=== PATIENT | female | born 1955 | race American Indian/Alaskan Native ===

== ENCOUNTER 2016-12-19 19:11 | Emergency (ER) | payer BC, OTHER ==
[2016-12-19 19:23] VITALS: BMI 38.2
[2016-12-19 19:25] VITALS: TEMP 98.1; O2SAT 100
--- NOTE | 2016-12-19 19:38 | ED PDOC ---
Arrival/HPI - General Chief Complaint: Lower Extremity Problem/Injury Time Seen by Provider: 12/19/16 19:22 - History of Present Illness Narrative History of Present Illness (Text): 12/19/16 19:34 61 yo female, hx of chf, previous cva walks with cane, presents with shoulder pain, urinary frequency, and leg swelling. pt reports symptoms over week. no cp. pt poor historian, no family bedside. no trauma, no fevers, cough, n/v, abdominal pain. 12/20/16 02:18 Past Medical History - Provider Review Nursing Documentation Reviewed: Yes - Tetanus Immunization Tetanus Immunization: Unknown - Cardiac Hx Cardiac Disorders: Yes Hx Hypertension: Yes Other/Comment: ablation - Pulmonary Hx Respiratory Disorders: Yes (RESP FAILURE,TRACHEOSTOMY) Hx Asthma: Yes - Neurological HX Cerebrovascular Accident: Yes (R isabella) - HEENT Hx HEENT Disorder: Yes - Renal Hx Renal Disorder: No - Endocrine/Metabolic Hx Endocrine Disorders: No - Hematological/Oncological Hx Blood Transfusions: No Hx Blood Transfusion Reaction: No - Integumentary Hx Dermatological Disorder: Yes (REDNESS AROUND G TUBE) - Musculoskeletal/Rheumatological Hx Rheumatoid Arthritis: Yes - Gastrointestinal Hx Gastrointestinal Disorders: Yes Other/Comment: G tbue - Genitourinary/Gynecological Hx Genitourinary Disorders: Yes Hx Incontinence: Yes - Psychiatric Hx Psychophysiologic Disorder: Yes Hx Anxiety: Yes Hx Substance Use: No - Past Surgical History Past Surgical History: Unable to Obtain - Surgical History Other/Comment: gtube, ablation - Anesthesia Hx Anesthesia: Yes Hx Anesthesia Reactions: No Hx Malignant Hyperthermia: No - Suicidal Assessment Feels Threatened In Home Enviroment: No Family/Social History - Physician Review Nursing Documentation Reviewed: Yes Family/Social History: Unknown Family HX Smoking Status: Never Smoked Hx Alcohol Use: No Hx Substance Use: No Hx Substance Use Treatment: No Allergies/Home Meds Allergies/Adverse Reactions: Allergies Penicillins Allergy (Verified 12/19/16 19:22) RASH Home Medications: Home Meds Medication Instructions Recorded Confirmed Amiodarone [Cordarone] 04/19/15 04/19/15 Aspirin [Ecotrin] 04/19/15 04/20/15 Atorvastatin [Lipitor] 04/19/15 04/19/15 Lisinopril [Zestril] 2.5 mg PO 02/16/16 02/16/16 Metoprolol Tartrate 04/19/15 04/20/15 Sertraline [Zoloft] 04/19/15 04/19/15 Review of Systems - Review of Systems Constitutional: Normal Eyes: Normal ENT: Normal Respiratory: SOB Cardiovascular: Normal Gastrointestinal: Normal Genitourinary Female: Normal Musculoskeletal: Other (leg swelling) Skin: Normal Neurological: Normal Endocrine: Normal Hemo/Lymphatic: Normal Psychiatric: Normal Physical Exam Vital Signs Temp Pulse Resp BP Pulse Ox 12/19/16 22:44 73 20 138/72 100 12/19/16 19:24 98.1 F 65 22 147/69 100 12/19/16 19:23 68 18 147/62 100 Temperature: Afebrile Blood Pressure: Normal Pulse: Regular Respiratory Rate: Normal Appearance: Positive for: Well-Appearing, Non-Toxic, Comfortable, Other ((+) slurred speech 2/2 previous cva) Pain Distress: None Mental Status: Positive for: Alert and Oriented X 3 - Systems Exam Head: Present: Atraumatic, Normocephalic Pupils: Present: PERRL Extroacular Muscles: Present: EOMI Conjunctiva: Present: Normal Mouth: Present: Moist Mucous Membranes Neck: Present: Normal Range of Motion Respiratory/Chest: Present: Clear to Auscultation, Good Air Exchange. No: Respiratory Distress, Accessory Muscle Use Cardiovascular: Present: Regular Rate and Rhythm, Normal S1, S2. No: Murmurs Abdomen: Present: Normal Bowel Sounds. No: Tenderness, Distention, Peritoneal Signs Back: Present: Normal Inspection Upper Extremity: Present: Normal Inspection. No: Cyanosis, Edema Lower Extremity: Present: Normal Inspection, Swelling. No: Edema Neurological: Present: GCS=15, CN II-XII Intact, Speech Normal Skin: Present: Warm, Dry, Normal Color. No: Rashes Psychiatric: Present: Alert, Oriented x 3, Normal Insight, Normal Concentration Medical Decision Making ED Course and Treatment: 12/19/16 21:25 Impression: A 61 year old female with shoulder pain, urinary frequency and leg swelling. ro dvt/pe, uti. Plan: -- EKG -- chest xray -- US lower extremity -- labs -- Urinalysis -- Reassess and disposition Progress Notes: EKG: Ordered, reviewed, and independently interpreted the EKG. Rate : 74 BPM Rhythm : NSR Interpretation : Normal intervals, normal axis NM Lung Perfusion and Ventilation Scan FINDINGS: Ventilation: Unremarkable. No ventilation defects. Perfusion: Unremarkable. No perfusion defects. IMPRESSION: No findings to suggest pulmonary embolism. Dictated and Authenticated by: Tony Gordon MD 12/20/2016 12:57 AM Eastern Time ([place] & [place]) 12/20/16 01:00 Chest xray: No acute disease, as read by me. 12/20/16 01:05 Patient is sleeping, in no acute distress. While in CT, patient reports previous poor reaction to IV contrast. Imaging changed to VQ scan. Offered patient to be admitted to hospital for observation, but patient prefers to be discharged home. XR Chest, 1 View FINDINGS: Heart: The heart is normal in size. Mediastinum: There are calcifications in the aortic wall. There is mild prominence the right hilum accentuated by rotation and lordosis. Vascularity: Pulmonary vascularity is normal. Lungs: Lungs are clear. Pleura: There are no effusions. Osseous structures: Bony structures are unremarkable. IMPRESSION: Limited by technique; normal heart size, no focal infiltrate Dictated and Authenticated by: Vani Mejia MD 12/20/2016 1:57 AM [place] Time ([place] & [place]) 12/20/16 02:18 - Lab Interpretations Lab Results: 12/19/16 20:00 12/19/16 20:00 Lab Results 12/19/16 22:41: PT 11.3, INR 1.04, APTT 31.4, D-Dimer, Quantitative 431 H 12/19/16 21:30: Urine Color Yellow, Urine Appearance Clear, Urine pH 6.5, Ur Specific [place] 1.015, Urine Protein Negative, Urine Glucose (UA) Negative, Urine Ketones Negative, Urine Blood Negative, Urine Nitrate Negative, Urine Bilirubin Negative, Urine Urobilinogen 0.2, Ur Leukocyte Esterase Negative 12/19/16 20:00: Sodium 142, Potassium 4.5, Chloride 102, Carbon Dioxide 32, Anion Gap 13, BUN 19, Creatinine 1.1, Est GFR ( Amer) > 60, Est GFR (Non- Af Amer) 51, Random Glucose 83, Calcium 9.3, Magnesium 1.9, Total Bilirubin 0.9 , AST 39 H, ALT 36, Alkaline Phosphatase 138 H, Lactate Dehydrogenase 514, Total Creatine Kinase 192, Troponin I < 0.01, NT-Pro-B Natriuret Pep 112, Total Protein 8.3, Albumin 4.2, Globulin 4.1, Albumin/Globulin Ratio 1.0 L 12/19/16 20:00: WBC 7.1, RBC 4.65, Hgb 13.8, Hct 41.7, MCV 89.7, MCH 29.7, MCHC 33.1, RDW 13.2, Plt Count 200, MPV 11.0, Gran % 60.8, Lymph % (Auto) 27.6, [place] % (Auto) 8.9 H, Eos % (Auto) 2.4, Baso % (Auto) 0.3, Gran # 4.32, Lymph # 2.0, [place] # 0.6, Eos # 0.2, Baso # 0.02 - RAD Interpretation Radiology Orders: 12/19/16 19:34 CHEST PORTABLE [RAD] Stat DUPLEX LOWER EXTRM VEIN BILAT [US] Stat 12/19/16 23:14 LUNG PERF & VENT SCAN [NM] Stat Disposition/Present on Arrival - Present on Arrival Any Indicators Present on Arrival: No History of DVT/PE: Yes History of Uncontrolled Diabetes: No Urinary Catheter: No History of Decub. Ulcer: No History Surgical Site Infection Following: None - Disposition Have Diagnosis and Disposition been Completed?: Yes Diagnosis: Leg swelling, Urinary frequency, Shoulder pain Disposition: HOME/ ROUTINE Disposition Time: 02:00 Condition: STABLE Discharge Instructions (ExitCare): Leg Edema (ED), Shoulder Pain (ED) Additional Instructions: please follow up with your doctor. return to er with worsening symptoms or concerns. Referrals: Bravo Miranda MD [Primary Care Provider] - Follow up with primary Forms: [employer] (Romansh)
[2016-12-19 20:26] LABS: BASO # 0.02 K/mm3 (0.0-2.0); BASO % 0.3 % (0.0-3.0); EOS # 0.2 (0.0-0.7); EOS % 2.4 % (1.5-5.0); GRAN # 4.32 (1.4-6.5); GRAN % 60.8 % (50.0-68.0); HEMATOCRIT 41.7 % (36.0-48.0); LYMPH % 27.6 % (22.0-35.0); MEAN CELL VOLUME 89.7 fl (80.0-105.0); MEAN CORPUSCULAR HEMOGLOBIN 29.7 pg (25.0-35.0); MEAN CORPUSCULAR HGB CONC 33.1 g/dl (31.0-37.0); MONO # 0.6 (0.1-0.6); MONO % 8.9 % (1.0-6.0); RED CELL DISTRIBUTION WIDTH 13.2 % (11.5-14.5); WHITE BLOOD COUNT 7.1 10^3/ul (4.5-11.0)
[2016-12-19 20:29] LABS: ALKALINE PHOSPHATASE 138 U/L (38-126); ALT/SGPT 36 U/L (7-56); AST/SGOT 39 U/L (14-36); BILIRUBIN,TOTAL 0.9 mg/dL (0.2-1.3); BLOOD UREA NITROGEN 19 mg/dL (7-21); CALCIUM 9.3 mg/dL (8.4-10.5); CARBON DIOXIDE 32 mmol/L (21-33); CHLORIDE 102 mmol/L (98-107); GFR AFRICAN-AMERICAN > 60; GLUCOSE,RANDOM 83 mg/dL (70-110); MAGNESIUM 1.9 mg/dL (1.7-2.2); POTASSIUM 4.5 mmol/L (3.6-5.0); SODIUM 142 mmol/L (132-148); TOTAL PROTEIN 8.3 g/dL (5.8-8.3)
[2016-12-19 21:10] LABS: TROPONIN I < 0.01 ng/mL
[2016-12-19 21:56] LABS: PH,URINE 6.5 (4.7-8.0); URINE APPEARANCE CLEAR (CLEAR); URINE BILIRUBIN NEGATIVE (NEGATIVE); URINE BLOOD NEGATIVE (NEGATIVE); URINE COLOR YELLOW (YELLOW); URINE GLUCOSE (UA) NEGATIVE (NEGATIVE); URINE KETONE NEGATIVE (NEGATIVE); URINE LEUKOCYTE ESTERASE NEGATIVE Leu/uL (NEGATIVE); URINE PROTEIN NEGATIVE mg/dL (<30 mg/dL); URINE UROBILINOGEN 0.2 E.U./dL (<1 E.U./dL)
[2016-12-19 22:45] VITALS: BP 138/72; PULSE 73; RESP 20
[2016-12-19 22:53] LABS: INR 1.04 (0.93-1.08); PARTIAL THROMBOPLASTIN TIME 31.4 Seconds (25.1-36.5)
[2016-12-19] MEDS ORDERED: Iohexol 350 MG/100 ML VIAL ONE (22:57)
--- NOTE | 2016-12-20 01:57 | RAD ---
EXAM: XR Chest, 1 View EXAM DATE/TIME: 12/19/2016 7:34 PM CLINICAL HISTORY: 61 years old, female; Signs and symptoms; Shortness of breath; Additional info: SOB TECHNIQUE: Frontal view of the chest. COMPARISON: CR - CHEST PORTABLE 2015-04-19 23:45 FINDINGS: Heart: The heart is normal in size. Mediastinum: There are calcifications in the aortic wall. There is mild prominence the right hilum accentuated by rotation and lordosis. Vascularity: Pulmonary vascularity is normal. Lungs: Lungs are clear. Pleura: There are no effusions. Osseous structures: Bony structures are unremarkable. IMPRESSION: Limited by technique; normal heart size, no focal infiltrate
--- NOTE | 2016-12-20 08:57 | NM ---
COMPARISON: Portable chest same day TECHNIQUE: 33.0 mCi technetium 99-m inhaled DTPA 4.0 mCI technetium 99-m MAA administered intravenously. FINDINGS: VENTILATION COMPONENT: Normal. PERFUSION COMPONENT: Normal. The report concurs with the preliminary [facility] report IMPRESSION: Lowprobability ventilation perfusion scan for pulmonary embolism.
--- NOTE | 2016-12-20 13:34 | US ---
HISTORY: Leg pain and swelling. Evaluate for DVT PHYSICIAN(S): Venkatesh Trotter MD. TECHNIQUE: Duplex sonography and color-flow Doppler with graded compression were used to evaluate the deep venous systems of both lower extremities. The exam is limited by body habitus and edema. The lower femoral veins and tibial veins are not well seen FINDINGS: The visualized deep venous systems of both lower extremities are sonographically normal and compressible. Normal wave forms and augmentation are seen. There is no sonographic evidence for deep venous thrombosis in the visualized segments of both lower extremities. IMPRESSION: No sonographic evidence for deep venous thrombosis in the visualized segments of both lower extremities. Limited study.
--- NOTE | 2016-12-20 20:58 | CARD ---
APPROVED REPORT EKG Measurement Heart [id number] <Conclusion> Normal sinus rhythm Possible Left atrial enlargement Prolonged QT Abnormal ECG
== END 2016-12-20 02:01 | disposition home or self-care (01) ==
LOC: ED 19:11
DX: M79.89 Other specified soft tissue disorders (principal); R35.0 Frequency of micturition; M25.519 Pain in unspecified shoulder; I10 Essential (primary) hypertension; I50.9 Heart failure, unspecified; M06.9 Rheumatoid arthritis, unspecified; Z88.0 Allergy status to penicillin
CPT/HCPCS: 71010; 78582; 80053; 81003; 82550; 83615; 83735; 83880; 84484; 85025; 85378; 85610; 85730; 93005; 93970; 99283; Q9967